=== PATIENT | female | born 1955 ===

== ENCOUNTER 2024-01-28 05:25 | Day surgery (SDC) | payer OTHER ==
[2024-01-21 10:31] LABS: PH,URINE 5.5 (5.0-8.0); URINE APPEARANCE Clear; URINE BILIRRUBIN Negative (NEGATIVE); URINE BLOOD Trace; URINE COLOR Yellow; URINE GLUCOSE Negative (NEGATIVE); URINE LEUKOCYTE Trace; URINE NITRATE Negative; URINE PROTEIN Negative (NEGATIVE); URINE UROBILINOGEN 0.2 E.U./dl
[2024-01-21 10:36] LABS: URINE BACTERIA 31.4 uL (0.0-1933); URINE EPITHELIAL CELLS 4.9 uL (0.0-38.8); URINE RBC 7.6 uL (0.0-20.8); URINE WBC 12.5 uL (0.0-23.2)
[2024-01-21 10:48] LABS: HEMATOCRIT 38.9 % (36.0-45.00); HEMOGLOBIN 13.3 g/dL (12.0-15.00); MEAN CELL VOLUME 85.4 fL (80.00-100.00); MEAN CORPUSCULAR HEMOGLOBIN 29.2 pg (27.00-32.0); MEAN CORPUSCULAR HGB CONC 34.2 g/dl (32.0-36.0); RED BLOOD COUNT 4.55 M/uL (4.00-6.00)
[2024-01-21 11:14] LABS: INR 1.01; PARTIAL THROMBOPLASTIN TIME 24.3 SECONDS (22.0-34.0); PLATELET COUNT 173 K/uL (150-450); PROTHROMBIN TIME 10.6 SECONDS (9.0-11.5)
[2024-01-21 11:29] LABS: ALBUMIN 3.8 gm/dL (3.4-5.0); BILIRUBIN TOTAL 1.28 mg/dL (0.3-1.2); CALCIUM 8.9 mg/dL (8.5-10.1); CREATININE SERUM 0.52 mg/dL (0.55-1.02); GFR 117.98; GLOBULINA 3.6 G/DL (2.4-3.5); POTASSIUM 3.63 mEq/L (3.5-5.1); TOTAL PROTEIN 7.4 gm/dL (6.4-8.2)
[~2024-01-28] VITALS: Ht 152.4 cm; Wt 61.7 kg
[2024-01-28] MEDS ORDERED: CEFAZOLIN SODIUM 1,000 MG VIAL IV ONE (07:30)
== END 2024-01-28 11:00 | disposition home or self-care (01) ==
LOC: CIR.AMB 05:25
PROVIDERS: ATTEND Surgery
DX: K80.10 Calculus of gallbladder with chronic cholecystitis without obstruction (principal); I10 Essential (primary) hypertension